=== PATIENT | female | born 1985 | race Caucasian/White ===

== ENCOUNTER 2017-02-19 14:20 | Inpatient (IN) | payer OTHER ==
[~2017-02-19] VITALS: Ht 157.5 cm; Wt 90.7 kg
--- NOTE | ~2017-02-19 | CO ---
Unit #: [id number] #: [id number] Patient: MIS RUCKER [id number] [place] [address] [id number] I MR#: [id number] NAME: MIS RUCKER ROOM: [facility] Age: 31 Sex: F Admission Date: 02/19/2017 : 1985 Attending Physician: Roni Vazquez M.D. Primary Care Physician: Generic Doctor Not In System Consultation Date: 02/20/2017 CONSULTATION REPORT ISUBJECTIVE Mis is a 31-year-old with history of adult acne and methamphetamine use. She was admitted with multiple acne/sores on her face. There is no increased redness, swelling, heat, or pus noted. ASSESSMENT Adult acne with areas that she picks when she is high. There are no signs of secondary infection. PLAN Keep the areas clean with soap and water. She can follow up with PCP should she so desire. Dictated by... Evangelist TomlinAYuan-Lisa. for Javan Rico/yandy TD: 02/20/2017 22:19 JOB #: [id number] CONSULTATION REPORT Page 1 of 1 X Carolyn Jon CONSULTATION REPORT
--- NOTE | ~2017-02-19 | CO ---
Unit #: [id number] #: [id number] Patient: MIS RUCKER [id number] [place] [address] [id number] MR#: [id number] NAME: MIS RUCKER ROOM: 83 Age: 31 Sex: F Admission Date: 02/19/2017 : 1985 Attending Physician: Roni Vazquez M.D. Primary Care Physician: Generic Doctor Not In System Consultation Date: 02/22/2017 CONSULTATION REPORT HISTORY OF PRESENT ILLNESS Bing is a 31-year-old female, who had an abnormal UA, showed 2+ bacteria, trace leukocytes, trace protein, and negative nitrites. She denies burning or urinary frequency. She is not waking up at night to urinate and she does report chronic low back pain that is unchanged. She has no other complaints. PHYSICAL EXAMINATION CARDIAC: Regular rate and rhythm. No murmurs, gallops, or rubs. RESPIRATORY: Clear to auscultation bilaterally. ABDOMEN: Bowel sounds positive in all quadrants. No abdominal tenderness to palpation. No CVA tenderness or flank pain. ASSESSMENT AND PLAN Abnormal urinalysis. We will repeat UA in the morning. Please notify if remains abnormal. Dictated by... Jose Maria/yandy TD: 02/22/2017 23:23 JOB #: [id number] CONSULTATION REPORT Page 1 of 1 X GIGI CRUZ APRN X CONSULTATION REPORT
--- NOTE | ~2017-02-19 | PN ---
Unit #: [id number] #: [id number] Patient: MIS RUCKER [id number] [facility] [address] [place] [address] [id number] MR#: [id number] NAME: MIS RUCKER ROOM: [facility] Age: 31 Sex: F Admission Date: 02/19/2017 : 1985 Attending Physician: Roni Vazquez M.D. Admitting Physician: Roni Vazquez M.D. Primary Care Physician: Generic Doctor Not In System [facility] PROGRESS NOTES DATE OF SERVICE 02/21/2017 DISCUSSION Mis Rucker is a 31-year-old female seen on 02/21/2017. Patient interviewed, chart reviewed. Obtained information from nursing staff. Patient was compliant and cooperative. Mood sad, dysphoric, withdrawn, isolative, guarded. Patient tolerating medication fairly well. Complete review of systems unremarkable. MENTAL STATUS EXAMINATION General appearance, patient dressed casually. Attention span and concentration fair. Oriented to time, place and person. Mood and affect labile. Speech monotone. Thought process concrete. Patient denied any thoughts of harming self or others. Recent and remote memory poor. Insight and judgement poor. DIAGNOSES 1. Bipolar mood disorder NOS F31.9. 2. Amphetamine use disorder severe, F15.20. ASSESSMENT/PLAN Advise to continue with current medication and therapeutic protocol. If needed consider further adjustment of medication. The patient requested for nicotine patch which was ordered. Dictated by... Javan Rossi/payam TD: 02/24/2017 01:39 JOB #: [id number] Unit #: [id number] #: [id number] Patient: MIS RUCKER PROGRESS NOTES Page 1 of 1 X Roni Vazquez MD X PROGRESS NOTE
--- NOTE | ~2017-02-19 | DS ---
Unit #: [id number] #: [id number] Patient: MIS RUCKER [id number] [facility] [address] [place] [address] [id number] I MR#: [id number] NAME: MIS RUCKER ROOM: [facility] Age: 31 Sex: F Admission Date: 02/19/2017 : 1985 Discharge Date: 02/24/2017 Attending Physician: Roni Vazquez M.D. Primary Care Physician: Generic Doctor Not In System DISCHARGE SUMMARY REASON FOR ADMISSION Detox. DIAGNOSTIC STUDIES LABORATORY DATA: Unremarkable. HOSPITAL COURSE The patient was admitted to inpatient unit on 02/19/17 and discharged on 02/24/17. Patient was treated with group therapy, individual therapy, medication management, detox protocol, chemical dependency group. Patient was responsive to treatment, showed improvement. Subsequently, patient was discharged with a plan to follow in outpatient program. DISCHARGE DIAGNOSES PSYCHIATRIC: 1. Bipolar mood disorder, recurrent, severe, F31.9. 2. Amphetamine use disorder, severe, F15.20. SECONDARY DIAGNOSIS: Deferred. MEDICAL DIAGNOSIS: 1. Obesity. 2. Maculopapular rash on face. STRESSORS: Psychosocial stressor. FOLLOWUP CARE Patient to follow up in outpatient clinic as per social director. DISCHARGE MEDICATIONS 1. Effexor XR 150 mg daily for depression. 2. Seroquel 200 mg at bedtime for mood stabilization. 3. BuSpar 15 mg b.i.d. for anxiety. 4. Zyprexa 5 mg at bedtime for mood stabilization. CONDITION AT DISCHARGE Patient pleasant, cooperative. Denied any psychotic symptoms or any suicidal ideation. PROGNOSIS Guarded. Unit #: [id number] #: [id number] Patient: MIS RUCKER DIET AND ACTIVITY As tolerated. Dictated by... Javan Rossi/juana TD: 02/27/2017 17:27 JOB #: [id number] DISCHARGE SUMMARY Page 1 of 1 X Roni Vazquez MD X DISCHARGE SUMMARY
--- NOTE | ~2017-02-19 | PA ---
Unit #: [id number] #: [id number] Patient: MIS RUCKER [id number] [place] [address] [id number] I MR#: [id number] NAME: MIS RUCKER ROOM: P183 Age: 31 Sex: F Admission Date: 02/19/2017 : 1985 Date of Assessment: 02/20/2017 Attending Physician: Roni Vazquez M.D. Admitting Physician: Roni Vazquez M.D. Primary Care Physician: Generic Doctor Not In System PSYCHIATRIC ASSESSMENT INFORMANTS The patient reliability, fair; chart reliability, good. CHIEF COMPLAINT Depression and methamphetamine abuse. HISTORY OF PRESENT ILLNESS Ms. Smart is a 31-year-old female, presented with the above-mentioned complaint. The patient reports diagnosed with bipolar mood disorder, history of amphetamine abuse. The patient reported needing help, noncompliant with medication. The patient reported recently began taking medication after a week of relapse. The patient reports that she does not like to be on lithium, but reports that she has been aggressive and having blackout. The patient was physically aggressive at home and reports medication are not working. The director of the home reported that the patient has been isolating and she emerges and she is combative and rages. The patient recently relapsed on methamphetamine on 02/14/2017. The patient experiencing explosive outbursts since age 18, needing inpatient admission at this time for psychiatric stabilization. PAST PSYCHIATRIC HISTORY Remarkable for history of previous treatment on the outpatient basis for bipolar mood disorder. No history of any suicide attempt. FAMILY HISTORY AND SOCIAL HISTORY The patient has a poor support system, currently unemployed. Family psychiatric illness is remarkable for history of alcohol problem and anxiety in the paternal side of the family and maternal side of the family. The patient denied any history of abuse. No legal problems. MEDICAL HISTORY Unremarkable for any chronic medical illness. Musculoskeletal; muscle strength and tone, no atrophy or abnormal movement. Gait normal. MEDICATION HISTORY The patient is on lithium, Effexor, Seroquel, BuSpar. ALLERGIES No known drug allergies. SUBSTANCE ABUSE HISTORY The patient reported crack cocaine, age of onset 24; opioid, age of onset 24; amphetamine, age of onset 23. The patient reported history of Unit #: [id number] #: [id number] Patient: MIS RUCKER blackout, history of IV drug use. No history of any HIV, hepatitis, but withdrawal symptoms such as diarrhea, abdominal cramping, nervousness, muscle cramping, tremor, and restlessness. REVIEW OF SYSTEMS HEENT: Eyes, clear. Ears, nose, mouth, and throat; clear. CARDIOVASCULAR: Unremarkable. RESPIRATORY: Unremarkable. GI: Unremarkable. : Unremarkable. SKIN: Unremarkable. LYMPH NODE: Unremarkable. NEUROLOGIC: Unremarkable. ENDOCRINE: Unremarkable. HEMATOLOGIC: Unremarkable. ALLERGIC/IMMUNOLOGIC: Unremarkable. MUSCULOSKELETAL: Muscle strength and tone, no atrophy or abnormal movement. Gait normal. MENTAL STATUS EXAMINATION CONSTITUTIONAL: Measurement of vital signs; temperature 98.7, pulse 90, respirations 17, and blood pressure 143/92, height 5 feet 2 inches, weight 200 pounds. GENERAL APPEARANCE: The patient dressed casually. The patient did not show any facial deformity except the patient has a multiple maculopapular rash on face from picking her skin since started amphetamine. MUSCULOSKELETAL: Please see above. PSYCHIATRIC EXAMINATION Description of speech; regular rate, normal volume, normal articulation, coherent. Description of thought process, goal directed. Description of association, intact. Description of abnormal psychotic thinking, the patient denied any hallucination or delusions, but mood lability, sad and depressed, mood swing, suicidal ideation. Description of the patient's judgment, concerning everyday activity, poor. Social situation, poor. Concerning psychiatric condition, poor. Complete mental status examination; oriented in time, place, and person. Recent and remote memory, fair. Attention span and concentration, fair. Language, able to name object and repeat phrases. Fund of knowledge, aware of current event and passive vocabulary intact. Mood and affect, sad and dysphoric. Insight and judgment, fair to poor. ASSETS AND LIABILITIES Assets; the patient is articulate, able to take care of her ADL. Liability; history of substance abuse and bipolar disorder. ADMITTING DIAGNOSES Psychiatric: Bipolar mood disorder, recurrent severe, F31.9; amphetamine use disorder, severe, F15.20. Secondary diagnosis: Deferred. Medical diagnosis: None. Stressors: Psychosocial stressors. PSYCHIATRIC PLAN AND TREATMENT GOAL AND DISCHARGE PLAN Unit #: [id number] #: [id number] Patient: MIS RUCKER 1. Advised to admit the patient on the inpatient unit. Provide safe, supportive, and structured environment. 2. Ordered labs; CBC, CMP, UA, UDS, test. 3. Precaution for aggression, self-harm, detox protocol, detox monitoring, symptomatic. I advised to continue with Seroquel 200 mg at bedtime, BuSpar 15 mg b.i.d., Effexor XR 150 mg daily. Advised to discontinue lithium as the patient reported that she did not like this medication. We will continue to follow. If needed, consider further adjustment of medication. 4. Treatment goal; to attain euthymic mood, gain insight into her problem, and learn coping skills. 5. Discharge plan; plan to stabilize the patient and consider followup in outpatient program. ESTIMATED LENGTH OF STAY 5 to 7 days. Dictated by... Javan Rossi/yandy TD: 02/21/2017 16:03 JOB #: [id number] PSYCHIATRIC ASSESSMENT Page 1 of 1 X Roni Vazquez MD X PSYCHIATRIC ASSESSMENT
--- NOTE | ~2017-02-19 | PN ---
Unit #: [id number] #: [id number] Patient: MIS RUCKER [id number] [facility] [address] [place] [address] [id number] I MR#: [id number] NAME: MIS RUCKER ROOM: [facility] Age: 31 Sex: F Admission Date: 02/19/2017 : 1985 Attending Physician: Roni Vazquez M.D. Admitting Physician: Roni Vazquez M.D. Primary Care Physician: Generic Doctor Not In System [facility] PROGRESS NOTES DATE OF SERVICE: 02/22/2017 DISCUSSION Mis Rucker is a 31-year-old female, the patient interviewed, chart reviewed, and obtained information from nursing staff. REVIEW OF SYSTEMS Complete review of systems unremarkable. MENTAL STATUS EXAMINATION General appearance; the patient dressed casually. Attention span and concentration, fair. Oriented in time, place, and person. Mood and affect, labile. Speech, monotone. Thought process, concrete. The patient denied any thoughts of harming self or others, but requested for nicotine patch. Recent and remote memory, fair. Insight and judgment, fair to slightly impaired. DIAGNOSES 1. Bipolar mood disorder, not otherwise specified. 2. Amphetamine use disorder, severe. ASSESSMENT AND PLAN Advised to continue with current medication and therapeutic protocol. If needed, consider further adjustment of medication. Dictated by... Javan Rossi/yandy TD: 02/25/2017 02:05 JOB #: [id number] Unit #: [id number] #: [id number] Patient: MIS RUCKER PROGRESS NOTES Page 1 of 1 X Roni Vazquez MD X PROGRESS NOTE
--- NOTE | ~2017-02-19 | PN ---
Unit #: [id number] #: [id number] Patient: MIS RUCKER [id number] [facility] [address] [place] [address] [id number] I MR#: [id number] NAME: MIS RUCKER ROOM: [facility] Age: 31 Sex: F Admission Date: 02/19/2017 : 1985 Attending Physician: Roni Vazquez M.D. Admitting Physician: Roni Vazquez M.D. Primary Care Physician: Generic Doctor Not In System [facility] PROGRESS NOTES DATE 02/23/2017 DISCUSSION Mis Rucker is a 31-year-old female, seen on 02/23/2017. The patient interviewed, chart reviewed, and obtained information from the nursing staff. The patient reports making progress, somewhat concerned about her medication. the patient was able to participate in group, able to maintain safe behavior. REVIEW OF SYSTEMS Complete review of systems unremarkable. MENTAL STATUS EXAMINATION General appearance: Patient dressed casually. Attention span and concentration, fair. Oriented in time, place, and person. Mood and affect, labile. Speech, monotone. Thought process, concrete. The patient denied any thoughts of harming self or others. Recent and remote memory, poor. Insight and judgment, poor. DIAGNOSES 1. Bipolar mood disorder, recurrent, severe, F31.9. 2. Amphetamine use disorder, severe, F15.20. ASSESSMENT/PLAN Advised to continue with the current medication and therapeutic protocol, if needed consider further adjustment of medication. Dictated by... Javan Rossi/ngozi TD: 02/24/2017 13:08 JOB #: [id number] Unit #: [id number] #: [id number] Patient: MIS RUCKER PROGRESS NOTES Page 1 of 1 X Roni Vazquez MD PROGRESS NOTE
--- NOTE | ~2017-02-19 | HP ---
Unit #: [id number] #: [id number] Patient: MIS RUCKER [id number] [place] [address] [id number] I MR#: [id number] NAME: MIS RUCKER ROOM: P122 Age: 31 Sex: F Admission Date: 02/19/2017 : 1985 Attending Physician: Roni Vazquez M.D. Admitting Physician: Roni Vazquez M.D. Primary Care Physician: Generic Doctor Not In System HISTORY AND PHYSICAL HISTORY OF PRESENT ILLNESS Mis is a 31-year-old female admitted to [address] [place] [address] because of her illicit drug use which includes methamphetamine. PAST MEDICAL HISTORY Long history of illicit substance abuse to include methamphetamine. She has been clean since May 2016. PAST SURGICAL HISTORY Nothing reported. ALLERGIES No known drug allergies. SOCIAL HISTORY She does not smoke or use alcohol. Admits to a long history of illicit substance abuse to include snorting cocaine, IV heroin and snorting methamphetamines. FAMILY HISTORY Medically noncontributory. REVIEW OF SYSTEMS CONSTITUTIONAL: No fever or chills. HEENT: Denies any sore throat, ear pain or runny nose. CARDIOVASCULAR: Denies chest pain, irregular heart rhythm or palpitations. CHEST: Denies shortness of breath or cough. No hemoptysis. GASTROINTESTINAL: Denies nausea, vomiting, diarrhea or chronic constipation. ENDOCRINE: Denies history of increased thirst or urination. No recent significant weight loss or gain. GENITOURINARY: Denies dysuria, frequency, or hematuria. SKIN: Denies any rashes. HEMATOLOGIC: Denies history of increased bleeding or bruising. MUSCULOSKELETAL: Denies any hot, swollen joints. No generalized muscle pain. NEUROLOGIC: Denies problems with vision or speech. No frequent, severe headaches. No numbness, tingling or weakness in any extremities. Denies loss of bladder or bowel control. CURRENT MEDICATIONS 1. Vistaril p.r.n. 2. Seroquel 200 mg q.h.s. Unit #: [id number] #: [id number] Patient: MIS RUCKER 3. Milk of Magnesia p.r.n. 4. Maalox p.r.n. 5. Tylenol p.r.n. 6. Naproxen 375 mg b.i.d. 7. BuSpar 15 mg b.i.d. 8. Effexor XR 150 mg daily. PHYSICAL EXAMINATION GENERAL: Alert, well-nourished, in no apparent distress. VITAL SIGNS: Blood pressure 142/92, heart rate 90, respirations 16, temperature 98.6. WEIGHT: 200. HEIGHT: 5 feet 2 inches. SKIN: Warm and dry without rash or lesion. HEENT: Normocephalic. TMs not viewed. Oral and nasal passages clear. Conjunctivae clear. PERRLA. EOMs intact. NECK: Supple without lymphadenopathy or thyromegaly. HEART: Regular rate and rhythm without murmur. LUNGS: Clear. ABDOMEN: Soft, nontender. : Not done. EXTREMITIES: No evidence of cyanosis, clubbing or edema. Moves all without focal deficit. NEUROLOGICAL: Grossly within normal limits. Cranial Nerves: II: Visual valenzuela are intact. III, IV AND : Extraocular movements are intact. Pupils are equal, round and reactive to light. V: Facial sensation is grossly normal. VII: Facial movements and expression are normal. VIII: Auditory acuity grossly intact. IX, X: Uvula is midline. Phonation is normal. XI: Patient shrugs shoulders and turns head normally. XII: Tongue protrudes in the midline. Sensory and Motor Function: Sensory and motor sensation is grossly normal. Motor: moves all extremities well. Coordination: Gait is normal. Deep Tendon Reflexes: Intact. IMPRESSION Psychiatric admission. RECOMMENDATIONS PSYCHIATRIC: Per psychiatrist. MEDICAL: See no contraindication to participate in facility's activities. MEDICAL PROGNOSIS Good. MEDICAL CONDITION Stable. Dictated by... Carolyn Jon P.A.-C. for Javan Rico/juana Unit #: [id number] #: [id number] Patient: MIS RUCKER TD: 02/20/2017 18:29 JOB #: [id number] HISTORY AND PHYSICAL Page 1 of 1 X Carolyn Jon HISTORY AND PHYSICAL
--- NOTE | ~2017-02-19 | PN ---
Unit #: [id number] #: [id number] Patient: MIS RUCKER [id number] [facility] [address] [place] [address] [id number] I MR#: [id number] NAME: MIS RUCKER ROOM: [facility] Age: 31 Sex: F Admission Date: 02/19/2017 : 1985 Attending Physician: Roni Vazquez M.D. Admitting Physician: Roni Vazquez M.D. Primary Care Physician: Generic Doctor Not In System [facility] PROGRESS NOTES DATE OF SERVICE 02/20/2017 DISCUSSION Ms. Denny is a 31-year-old female seen on 02/20/2017. Patient interviewed, chart reviewed. Obtained information from nursing staff. Patient tolerating medication fairly well. Seclusive, isolative, guarded, flat affect. Complete review of systems unremarkable. MENTAL STATUS EXAMINATION General appearance, patient dressed casually. Attention span and concentration fair. Oriented to time, place and person. Mood and affect labile. Speech monotone. Thought process concrete. Patient denied any thoughts of harming self or others. Recent and remote memory poor. Insight and judgement poor. DIAGNOSES 1. Bipolar mood disorder NOS, F31.9. 2. Amphetamine use disorder severe F16.20. ASSESSMENT/PLAN Advise to continue with current medication and therapeutic protocol. If needed consider further adjustment of medication. Dictated by... Javan Rossi/payam TD: 02/20/2017 22:04 JOB #: [id number] [facility] PROGRESS NOTES Page 1 of 1 X Roni Vazquez MD PROGRESS NOTE
[2017-02-20 09:45] LABS: BASOPHIL% 0.6 % (0-2.5); EOSINOPHIL# 0.3 X10e3 (0-0.7); EOSINOPHIL% 5.8 % (0.0-7.0); HEMATOCRIT 39.5 % (35.0-45.0); HEMOGLOBIN 13.2 gm/dL (12.0-16.0); LYMPHOCYTE# 1.7 X10e3 (1.0-3.5); LYMPHOCYTE% 31.7 % (17.0-45.0); MEAN CELL VOLUME 86.6 FL (83-96); MEAN CORPUSCULAR HEMOGLOBIN 28.9 PG (28-34); MEAN CORPUSCULAR HGB CONC 33.4 g/dL (30-36); MEAN PLATELET VOLUME 11.9 FL (6.5-11.5); MONOCYTE# 0.5 X10e3 (0-1.0); NEUTROPHIL# 2.8 X10e3 (1.5-7.1); NEUTROPHIL% 51.9 % (40-75); PLATELET COUNT 141 X10e3 (140-420); RED BLOOD COUNT 4.57 X10e (3.90-5.30); RED CELL DISTRIBUTION WIDTH 12.6 % (11.0-15.5); WHITE BLOOD COUNT 5.3 X10e3 (4.0-10.5)
[2017-02-20 09:55] LABS: DIFF IND NO
[2017-02-20 10:04] LABS: ALBUMIN SERUM 3.4 g/dL (3.5-5.0); BILIRUBIN,TOTAL 0.8 mg/dL (0.2-2.0); CALCIUM SERUM 8.7 mg/dL (8.4-10.2); CREATININE SERUM 0.5 mg/dL (0.6-1.4); GLOM FILT RATE Estimated 130.8 mL/min (>60); POTASSIUM 3.7 mmol/L (3.5-5.1); PROTEIN TOTAL SERUM 6.5 g/dL (6.0-8.3)
[2017-02-22 11:43] LABS: URINE APPEARANCE TURBID; URINE BLOOD NEG (NEG); URINE COLOR DK YELLOW; URINE GLUCOSE NEG (NEG); URINE KETONE TRACE (NEG); URINE LEUKOCYTE ESTERASE TRACE (NEG); URINE NITRATE NEG (NEG); URINE PH 6.5 (5-8); URINE PROTEIN TRACE (NEG)
[2017-02-22 11:51] LABS: URINE BACTERIA AUWI 2+ (NEGATIVE); URINE SQUAMOUS EPITHELIAL CELL MANY /[HPF]
[2017-02-22 12:36] LABS: URINE CRYSTALS CALCIUM OXALATE /[HPF]
[2017-02-22 12:37] LABS: URINE BILIRUBIN NEG (NEG)
[2017-02-22 12:41] LABS: AMPHETAMINE NEG (NEG); BARBITURATES NEG (NEG); BENZODIAZEPINES NEG (NEG); COCAINE NEG (NEG); MARIJUANA NEG (NEG); OPIATES NEG (NEG); TRICYCLIC ANTIDEPRESSANTS POS (NEG); U METHADONE NEG (NEG)
[2017-02-23 15:33] LABS: URINE APPEARANCE CLOUDY; URINE BILIRUBIN NEG (NEG); URINE BLOOD NEG (NEG); URINE COLOR YELLOW; URINE GLUCOSE NEG (NEG); URINE KETONE NEG (NEG); URINE LEUKOCYTE ESTERASE NEG (NEG); URINE NITRATE NEG (NEG); URINE PH 6.5 (5-8); URINE PROTEIN NEG (NEG); URINE SPECIFIC GRAVITY 1.016 (1.003-1.035); URINE UROBILINOGEN 0.2 MG/DL (NEG)
== END 2017-02-24 10:20 | DRG 885 ==
LOC: P1E 18:55 → P1S 18:55 → P1E 02-20 20:08
PROVIDERS: Psychiatry & Neurology Psychiatry
PROC: HZ2ZZZZ Detoxification Services for Substance Abuse Treatment (ICD-10-PCS; principal; 2017-02-19)
DX: F31.4 Bipolar disorder, current episode depressed, severe, without psychotic features (principal); F15.20 Other stimulant dependence, uncomplicated; E66.9 Obesity, unspecified; R21 Rash and other nonspecific skin eruption
CPT/HCPCS: 80053; 80307; 81003; 84703; 85025